=== PATIENT | female | born 1990 | race American Indian/Alaskan Native ===

== ENCOUNTER 2022-05-06 15:06 | Emergency (ER) | payer SELFPAY ==
--- NOTE | 2022-05-06 16:19 | Emergency Department Report ---
ED General Adult HPI - General Stated complaint: COVID SYM/BODY ACHE PUI?: No Time Seen by Provider: 05/06/22 16:18 Source: patient, family Mode of arrival: Ambulatory Limitations: No Limitations - History of Present Illness Initial comments: 32 yo comes to ER with n/v/d; co she has covid pt reports n/v/d, fever, chills, h/a, chest tightness since yesterday. Pt denies cough. -: Gradual Improves with: none Worsens with: none Associated Symptoms: denies other symptoms, fever/chills, nausea/vomiting, other (diarrhea). denies: cough Treatments Prior to Arrival: none - Related Data Allergies Allergy/AdvReac Type Severity Reaction Status Date / Time No Known Allergies Allergy Verified 05/06/22 16:24 ED Review of Systems ROS: Stated complaint: COVID SYM/BODY ACHE Other details as noted in HPI Comment: All other systems reviewed and negative ED Past Medical Hx - Past Medical History Previous Medical History?: No - Surgical History Past Surgical History?: No - Family History Family history: no significant - Social History Smoking Status: Never Smoker Substance Use Type: Alcohol ED Physical Exam - General General appearance: alert, in no apparent distress - Head Head exam: Present: atraumatic, normocephalic - Eye Eye exam: Present: normal appearance - ENT ENT exam: Present: mucous membranes moist - Neck Neck exam: Present: normal inspection - Respiratory Respiratory exam: Present: normal lung sounds bilaterally. Absent: respiratory distress - Cardiovascular Cardiovascular Exam: Present: regular rate, normal rhythm. Absent: systolic murmur, diastolic murmur, rubs, gallop - GI/Abdominal GI/Abdominal exam: Present: soft, normal bowel sounds - Extremities Exam Extremities exam: Present: normal inspection - Back Exam Back exam: Present: normal inspection - Neurological Exam Neurological exam: Present: alert, oriented X3 - Psychiatric Psychiatric exam: Present: normal affect, normal mood - Skin Skin exam: Present: warm, dry, intact, normal color. Absent: rash ED Course Vital Signs 05/06/22 16:18 Temperature 98.9 F Pulse Rate 81 Respiratory 14 Rate Blood Pressure 125/86 [Right] Critical care attestation.: If time is entered above; I have spent that time in minutes in the direct care of this critically ill patient, excluding procedure time. ED Disposition Clinical Impression: Viral illness Disposition: 30 STILL A PATIENT Is pt being admited?: No Does the pt Need Aspirin: No Condition: Stable
[2022-05-06 16:24] VITALS: BP 125/86
[2022-05-06 17:01] LABS: Hematocrit 39.8 % (30.3-42.9); Hemoglobin 13.5 gm/dl (10.1-14.3); Mean Corpuscular HGB Conc 34 % (30-34); Mean Corpuscular Volume 94 fl (79-97); Platelet Count 243 K/mm3 (140-440); Red Blood Count 4.22 M/mm3 (3.65-5.03); Red Cell Distribution Width 12.2 % (13.2-15.2)
[2022-05-06 17:07] LABS: Alanine Aminotransferase 13 units/L (7-56); Albumin 4.5 g/dL (3.9-5); Blood Urea Nitrogen 6 mg/dL (7-17); Calcium 8.6 mg/dL (8.4-10.2); Hemolysis Index 96
[2022-05-06 17:10] LABS: BUN/Creatinine Ratio 10
--- NOTE | 2022-05-06 18:36 | Emergency Department Report ---
ED General Adult HPI - General Chief complaint: Upper Respiratory Infection Stated complaint: COVID SYM/BODY ACHE PUI?: No Time Seen by Provider: 05/06/22 16:18 Source: patient, family Mode of arrival: Ambulatory Limitations: No Limitations - History of Present Illness Initial comments: 32-year-old female no significant past medical history presents to the ER with COVID-like symptoms. Patient reports nausea vomiting diarrhea fever chills headache cough with green mucus and chest tightness for about 2 days. Patient reports taking [id number] medicines and holistic herbs and spices. Patient denies any shortness of breath. Patient denies any weakness. Patient reports no acute signs or symptoms at this time. Severity scale (0 -10): 7 Improves with: none Worsens with: none Associated Symptoms: denies other symptoms, fever/chills, nausea/vomiting, other (diarrhea). denies: cough Treatments Prior to Arrival: none - Related Data Previous Rx's Medication Instructions Recorded Last Taken Type Benzonatate [Tessalon Perles] 100 mg PO BID PRN 7 Days #14 cap 05/06/22 Unknown Rx predniSONE [Deltasone] 40 mg PO QDAY 5 Days #10 tab 05/06/22 Unknown Rx Allergies Allergy/AdvReac Type Severity Reaction Status Date / Time No Known Allergies Allergy Verified 05/06/22 16:24 ED Review of Systems ROS: Stated complaint: COVID SYM/BODY ACHE Other details as noted in HPI Comment: All other systems reviewed and negative Constitutional: fever Respiratory: cough. denies: shortness of breath Cardiovascular: other (Chest tightness). denies: chest pain Gastrointestinal: nausea, vomiting, diarrhea. denies: abdominal pain Neurological: headache, other (No dizziness). denies: weakness ED Past Medical Hx - Past Medical History Previous Medical History?: No - Surgical History Past Surgical History?: No - Social History Smoking Status: Never Smoker Substance Use Type: Alcohol - Medications Home Medications: Home Medications Medication Instructions Recorded Confirmed Last Taken Type Benzonatate [Tessalon Perles] 100 mg PO BID PRN 7 Days #14 cap 05/06/22 Unknown Rx predniSONE [Deltasone] 40 mg PO QDAY 5 Days #10 tab 05/06/22 Unknown Rx ED Physical Exam - General Limitations: No Limitations General appearance: alert, in no apparent distress - Head Head exam: Present: atraumatic, normocephalic - Eye Eye exam: Present: normal appearance - ENT ENT exam: Present: mucous membranes moist - Neck Neck exam: Present: normal inspection - Respiratory Respiratory exam: Present: normal lung sounds bilaterally. Absent: respiratory distress, wheezes, rales, rhonchi, stridor - Cardiovascular Cardiovascular Exam: Present: regular rate, normal rhythm, normal heart sounds. Absent: systolic murmur, diastolic murmur, rubs, gallop - GI/Abdominal GI/Abdominal exam: Present: soft, normal bowel sounds. Absent: distended, tenderness, guarding - Extremities Exam Extremities exam: Present: normal inspection - Back Exam Back exam: Present: normal inspection - Neurological Exam Neurological exam: Present: alert, oriented X3 - Psychiatric Psychiatric exam: Present: normal affect, normal mood - Skin Skin exam: Present: warm, dry, intact, normal color. Absent: rash ED Course Vital Signs 05/06/22 05/06/22 16:18 23:26 Temperature 98.9 F 98.9 F Pulse Rate 81 81 Respiratory 14 14 Rate Blood Pressure 125/86 125/86 [Right] ED Medical Decision Making - Lab Data Result diagrams: 05/06/22 16:30 05/06/22 16:30 - Radiology Data Radiology results: report reviewed, [place] [address] XRay Report Signed Patient: QUINN DAILEY MR#: [id number] : 1990 Acct:[id number] Age/Sex: 32 / F ADM Date: 05/06/22 Loc: ED Attending Dr: Ordering Physician: TIRSO REY NP Date of Service: 05/06/22 Procedure(s): XR chest routine 2V Accession Number(s): [id number] cc: TIRSO REY NP Fluoro Time In Minutes: CHEST 2 VIEWS INDICATION / CLINICAL INFORMATION: cough. COMPARISON: None available. FINDINGS: SUPPORT DEVICES: None. HEART / MEDIASTINUM: No significant abnormality. LUNGS / PLEURA: No significant pulmonary or pleural abnormality. No p neumothorax. ADDITIONAL FINDINGS: No significant additional findings. IMPRESSION: 1. No acute findings. Signer Name: Wilfred Andersen MD Signed: 05/06/2022 6:33 PM Workstation Name: [id number] Transcribed By: DT Dictated By: Mati Andersen MD Electronically Authenticated By: Mati Andersen MD Signed Date/Time: 05/06/221832 DD/ 32 TD/TT: Print Cancel - Medical Decision Making 32-year-old female no significant past medical history presents to the ER with COVID-like symptoms. Patient reports nausea vomiting diarrhea fever chills headache cough with green mucus and chest tightness for about 2 days. Patient reports taking owjv-hho-jwulfal medicines and holistic herbs and spices. Patient denies any shortness of breath. Patient denies any weakness. Patient reports no acute signs or symptoms at this time On physical exam no acute clinical signs noted. Lungs clear to auscultation. X-ray of chest shows no acute process. Patient informed that ER does not currently do COVID testing for non admitted patients and that if she feels that she has COVID to go get tested and local COVID testing center. Patient informed no acute findings on physical exam and her chest x-ray came back with no acute process no concern for pneumonia. Patient agrees with plan of care and verbalized understanding. Patient informed that if she is to get worse or have worsening symptoms to report back to the ER. Patient is stable for discharge home. Vital Signs 05/06/22 05/06/22 16:18 23:26 Temperature 98.9 F 98.9 F Pulse Rate 81 81 Respiratory 14 14 Rate Blood Pressure 125/86 125/86 [Right] Critical care attestation.: If time is entered above; I have spent that time in minutes in the direct care of this critically ill patient, excluding procedure time. ED Disposition Clinical Impression: Viral illness, Cough, Nausea vomiting and diarrhea, Chest tightness Disposition: 01 HOME / SELF CARE / HOMELESS Is pt being admited?: No Condition: Stable Instructions: Nausea, Adult, Nausea and Vomiting, Adult, Cough, Adult, Chest Wall Pain Prescriptions: predniSONE [Deltasone] 40 mg PO QDAY 5 Days #10 tab Benzonatate [Tessalon Perles] 100 mg PO BID PRN 7 Days #14 cap PRN Reason: cough Referrals: PRIMARY CARE, [Primary Care Provider] - 3-5 Days Forms: Work/School Release Form(ED)
== END 2022-05-06 23:27 | disposition home or self-care (01) ==
LOC: ED 15:06
DX: B34.9 Viral infection, unspecified (principal); R11.2 Nausea with vomiting, unspecified; R19.7 Diarrhea, unspecified; R07.9 Chest pain, unspecified; F10.20 Alcohol dependence, uncomplicated
CPT/HCPCS: 36415; 71046; 80053; 83690; 85027; 99283